=== PATIENT | female | born 1940 | race Caucasian/White ===

== ENCOUNTER 2018-12-23 11:14 | Inpatient (IN) | payer MEDICARE | END 2018-12-24 15:30 | disposition home or self-care (01) | DRG 249 | LOC: D.CATH 11:14 → D.CVICU 17:58 → D.CATH 17:59 → D.CVICU 18:00 | PROVIDERS: ADMIT Internal Medicine Interventional Cardiology | PROC: B2111ZZ Fluoroscopy of Multiple Coronary Arteries using Low Osmolar Contrast (ICD-10-PCS; principal; 2018-12-23) | PROC: 02703EZ Dilation of Coronary Artery, One Artery with Two Intraluminal Devices, Percutaneous Approach (ICD-10-PCS; 2018-12-23) | PROC: B2151ZZ Fluoroscopy of Left Heart using Low Osmolar Contrast (ICD-10-PCS; 2018-12-23) | PROC: 4A023N7 Measurement of Cardiac Sampling and Pressure, Left Heart, Percutaneous Approach (ICD-10-PCS; 2018-12-23) | DX: I25.10 Atherosclerotic heart disease of native coronary artery without angina pectoris (principal); I47.1 Supraventricular tachycardia ==

== ENCOUNTER → 2019-05-14 07:55 | Outpatient (CLI) | payer MEDICARE ==
[2018-12-24 10:52] VITALS: BMI 25.3
[~2019-05-14 07:55] MED LIST: BACTRIM DS TABL1 TAB PO; BAYER CHEWABLE81 MG PO; BETAPACE 80 MG80 MG PO; COZAAR50 MG PO; EFFEXOR XR75 MG PO; EFFEXOR37.5 MG PO; GABAPENTIN100 MG PO; LINZESS145 MCG PO; MOBIC7.5 MG PO; NORCO 10-325 TA1 TAB PO; NORVASC5 MG PO; OMEPRAZOLE20 M1 PO; PLAVIX75 MG PO; PROTONIX40 MG PO; TENORMIN25 MG PO; ULTRAM50 MG PO; ZIAC 5-6.25 MG1 TAB PO
== END | disposition home or self-care (01) ==
LOC: D.NM 07:55
PROVIDERS: ATTEND Internal Medicine Gastroenterology
DX: R10.9 Unspecified abdominal pain (principal); R14.0 Abdominal distension (gaseous)

== ENCOUNTER 2020-02-05 05:35 | Day surgery (SDC) | payer MEDICARE ==
--- NOTE | 2020-02-03 14:54 | NUR ---
pox- 93% rr- 16, hr- 71 bp la-131/58
[2020-02-03 15:46] LABS: HEMATOCRIT 33.3 % (36.0-48.0); HEMOGLOBIN 11.5 g/dL (12-16); MCH 30.7 pg (26.0-34.0); MCHC 34.5 g/dL (31.0-37.0); MCV 88.8 fL (80.0-100.0); RBC 3.75 10x6/uL (4.00-5.40); RDW 13.3 % (11.5-14.5); WBC 3.9 10x3/uL (4.8-10.8)
[~2020-02-05] VITALS: Ht 162.6 cm; Wt 66.2 kg
[2020-02-05 06:18] VITALS: BP 140/75; Ht 162.6 cm; Wt 66.2 kg
[2020-02-05] MEDS ORDERED: HYDROCODON-ACE1 EA10 PO (09:10)
[2020-02-05] MEDS ORDERED: MEDROL DOSE PACK4 MG PO (09:10)
--- NOTE | 2020-02-05 11:06 | NUR ---
1000 SOLIZ WELL GOOD SENSATION. INSTRUCTIONS GIVEN
--- NOTE | 2020-02-05 13:03 | NUR ---
1045 MEDICATED FOR PAIN. SMALL AMT OF DRAINAGE ON DRESSING.1130 IV REMOVED AND PRESSURE HELD. VOIDED A LARGE AMT. INSTRUCTIONS GIVEN AND PAIN A 09/29 ON D/C HOME
--- NOTE | 2020-02-13 11:01 | OP ---
PATIENT NAME: MAGDALENO PEDRAZA MEDICAL RECORD: [id number] :42 LOCATION:D.[facility] ADMISSION DATE: SURGEON: IGOR HERNANDEZ MD DATE OF OPERATION: 02/05/2020 DATE OF SERVICE: 02/05/2020 PREOPERATIVE DIAGNOSIS: Lumbar spinal stenosis with foraminal stenosis, L4-L5, right. POSTOPERATIVE DIAGNOSES: Lumbar spinal stenosis with foraminal stenosis, L4-L5, right with right L5 radiculopathy. PROCEDURES: Lumbar laminotomy, medial facetectomy and foraminotomy L4-L5 with METRx retractor. SURGEON: Igor Hernandez MD OPERATER: Heber Moseley APN DESCRIPTION OF TECHNIQUE: After induction of general endotracheal anesthesia, the patient was rolled prone on the Blaze frame. Lumbar spine was prepped and draped in usual sterile fashion. Fluoroscopic x-ray and spinal needle localized the L4-L5 interspace on the right side. After infiltration of 1:100,000 epinephrine and 1% lidocaine, a stab incision was created with a #11 blade and series of dilators were used to advance a METRx retractor to the L4-L5 interspace on the right side. Level was confirmed with fluoroscopic x-ray. A microscope and Midas Vince drill were used to perform a laminotomy, medial facetectomy and foraminotomy at L4-L5 on the right. Hypertrophied ligament flavum was removed with Cloward rongeurs. This relieved nerve root compression at the L4 and L5 nerve roots. Disk space was inspected and found to cause no significant nerve root compression. Meticulous hemostasis was maintained throughout the wound. Wound was irrigated with copious amounts of Ancef irrigant solution. The retractor was removed. The fascia was closed with 2-0 Vicryl suture. The subdermal layer was closed with 3-0 Vicryl suture. The skin was closed with jd. A sterile dressing was applied to the wound. The patient was awakened in good condition and taken to recovery. All counts were reported as correct. Estimated blood loss was minimal. assistant football coach for the procedure was Heber Moseley APN. During the entirety of the procedure, Heber Moseley provided retraction, hemostasis and assistance with mechanical portions of the procedure. TRANSINT:[id number] Voice Confirmation ID: [id number] DOCUMENT ID: [id number] IGOR HERNANDEZ MD at 1101 CC: [id number] DICTATION DATE: 02/12/20 1435 PATIENT REGISTRATION SUPERVISOR: 02/12/20 1530 [facility] 02/05/20 [id number] [place] [address]
== END 2020-02-05 11:45 | disposition home or self-care (01) ==
LOC: D.OPS 05:35 → D.PAN 07:30 → D.OPS 11:15 → D.PAN 11:15 → D.OPS 11:45
PROVIDERS: Anesthesiology; ATTEND Neurological Surgery
DX: M54.16 Radiculopathy, lumbar region (principal); M48.061 Spinal stenosis, lumbar region without neurogenic claudication; K21.9 Gastro-esophageal reflux disease without esophagitis; I10 Essential (primary) hypertension; E78.5 Hyperlipidemia, unspecified